=== PATIENT | male | born 1970 | race Caucasian/White ===

== ENCOUNTER 2024-11-24 09:59 | Outpatient (REF) | payer OTHER, SELFPAY ==
--- NOTE | ~2024-11-24 | XR_ITS ---
CLINICAL HISTORY: TARSAL TUNNEL SYNDROME OF RIGHT SIDE --- Additional Notes or Special Instructions: WO 3 view right foot Comparison: None provided Findings: Bones intact. No dislocations. No significant arthritic change or erosions. No ankle effusion. No radiopaque foreign body. IMPRESSION: 1. No acute findings. This document has been electronically signed by: Serjio Clarke MD on 11/25/2024 10:50:42
--- OUTSIDE RECORDS SUMMARY | 2024-11-24 11:15 | XMS_ITS | Data Portability ---
Author Organization [place] - [facility], Allergy Address [address] [address] Care Team Providers Care Pipe And Test Supervisor Name Role Phone JOHN DONG Primary Care Provider [phone] Assessment Encounter Date Assessment Date Assessment LastModified by Organization Details LastModified Time 01/05/2024 01/05/2024 53 year old male with a few months of left sided tinnitus that seems to have now resolved. Ear examination today is normal. Audiogram demonstrates normal hearing bilaterally. Audiogram was reviewed with the patient.We discussed that unilateral tinnitus is more unusual, but I am reassured by his normal exam, audiogram and almost complete resolution of symptoms. If the tinnitus were to return and be persistent, I would recommend reevaluation in our office with consideration of an MRI of the brain and internal auditory canals to rule out retrocochlear pathology. [email or web address] Not available 01/05/2024 14:32:09 Plan of Treatment Reminders Order Date Submit Date Provider Last Modified By Organization Details Last Modified Time Details Appointments None record ed. Lab None record ed. Referral None record ed. Procedures None record ed. Surgeries None record ed. Imaging None record ed. Medication Orders None record ed. Patient TargetsNo targets recorded. Patient InstructionsNo instructions recorded. Reason for Referral None Reported. Results Created Date Observation Date Name Description Value Unit Range Abnormal Flag Note LastModifiedBy Organization Detail LastModifiedTime 01/06/20 24 audio gram No observ ation record ed. BARCODE Not Available 2023 11:03:08 Result Notes None recorded. Problems Name Problem SNOMED Code Status Onset Date Resolution Date Notes Provider Name and Address Organization Details Recorded Time Tinnitus of left ear 5044054899629 Active 2023 ASHTYN BENTLEY, Alisha [address], [address], [facility] - [facility] 14:00:10 Problem Notes None recorded. Procedures Surgical History Date Name Laterality Status Provider Name and Address Organization Details Recorded Time 01/05/2024 Air & Speech Audio with Tymps - 00118, 47049 & 40866 completed ASHTYN BENTLEY, AuD 100 [facility],[address], [place], [address], [facility] 01/05/2024 13:58:24 Imaging Results None recorded. Procedure Notes None recorded. Medical Equipment None Reported. Allergies No known drug allergies Medications Name Sig Start Date Stop Date Status Note LastModified by Organization Details LastModified Time atorvastatin 20 mg tablet TAKE 1 TABLET BY MOUTH EVERY DAY active Not Available Not Available No t Available Vitals Date Recorded Body height Body mass index (BMI) Body weight Provider Name and Address Organization Details Last Updated DateTime 01/05/2024 182.88 cm 26.4 kg/m2 33347.51 g Kajal Quijano [facility] 01/05/2024 14:05:30 Social History None recorded. Functional Status None recorded. Mental Status None recorded. Family History Nothing Reported. Medical History No medical history recorded. Past Encounters Encounter ID Performer Location Encounter Start Date Encounter Closed Date Diagnosis/Indication Diagnosis SNOMED-CT Code Diagnosis ICD10 Code Diagnosis Note [id number] ROCHELLE BATISTA PA-C [facility] on [address] [place] [address] 01/05/2024 13:29:54 01/05/2024 15:35:12 Tinnitus of left ear 1211565470 106 H93.12 Audiologic al evaluation results: Right ear: Normal hearing with excellent word recognitio n. Left ear: Normal hearing with excellent word recognitio n. Tympanomet ry: Right Ear:Type A Left Ear:Type A Health Concerns Section Related Observation LastModified by Organization Detai ls LastModified Time None Recorded Concern Status LastModified by Organization Details LastModified Time None Recorded Advance Directives Directive None Recorded Payers Insurance Date Sequence Insurance Name Policy Number Policy Woods Covered Member ID Woods Member ID Guarantor Name 01/07/2024 1 [employer] - [employer] PPO (PPO) Maninder Hicks [id number] Maninder Hicks Notes Date Note Type Note Provider Name and Address Organization Details Recorded Time 01/05/2024 text/html 53 year old male presents today for evaluation of tinnitus.He reports about six to seven months ago he developed left sided tinnitus. It was fairly predominant and regular for a few months, and now seems mostly gone. He noted no hearing loss at the time. He feels he hears pretty well most of the time. He has some noise exposure through music. No occupational noise exposure, no firearm. No significant balance issues. Reports all his older male relatives have had hearing loss later in life. Rochelle wing [place] - [facility] 01/05/2024 14:32:21
== END 2024-11-24 10:00 | disposition home or self-care (01) ==
LOC: HO.XRAY 09:59
PROVIDERS: PCP Internal Medicine; Visit Provider Psychiatry & Neurology Neurology
DX: G57.51 Tarsal tunnel syndrome, right lower limb (principal)
CPT/HCPCS: 73620

== ENCOUNTER → 2024-11-24 10:06 | Outpatient (BNV) | payer OTHER, SELFPAY | PROVIDERS: PCP Internal Medicine; Visit Provider Radiology Diagnostic Radiology | DX: G57.51 Tarsal tunnel syndrome, right lower limb (principal) | CPT/HCPCS: 73620 ==

== ENCOUNTER 2024-12-21 08:27 | Outpatient (REF) | payer OTHER, SELFPAY ==
--- NOTE | 2024-12-21 | EMG_ITS ---
Impression: Normal motor and sensory nerve conduction velocities in the lower extremities. Normal EMG of the right L2-S1 innervated muscles. Please see detailed neurophysiological report MTDD
--- OUTSIDE RECORDS SUMMARY | 2024-12-21 08:31 | XMS_ITS | Data Portability ---
Author Organization [place] - [facility], Allergy Address [address] [address] Care Team Providers Care Ticker Wirer Name Role Phone JOHN DONG Primary Care Provider Assessment Encounter Date Assessment Date Assessment LastModified [...] Details Recorded Time Tinnitus of left ear 9328534655873 Active 2023 ASHTYN BENTLEY, AuD 100 [facility] [address], [place], [address], [facility] - [facility] 14:00:10 Problem Notes None recorded. Procedures Surgical History Date Name Laterality Status Provider Name and Address Organization Details Recorded Time 01/05/2024 Air & Speech Audio with Tymps - 17425, 14486 & 91238 completed ASHTYN SHEREE, AuD 100 [facility] [address], [place], [address], [facility] 01/05/2024 13:58:24 Imaging Results None recorded. Procedure [...] Updated DateTime 01/05/2024 182.88 cm 26.4 kg/m2 50072.51 g Kajal Quijano [facility] 01/05/2024 14:05:30 Social History None recorded. Functional Status None recorded. Mental Status None recorded. Family History Nothing Reported. Medical History No medical history recorded. Past Encounters Encounter ID Performer Location Encounter Start Date Encounter Closed Date Diagnosis/Indication Diagnosis SNOMED-CT Code Diagnosis ICD10 Code Diagnosis Note [id number] ROCHELLE BATISTA PA-C [facility] on [address] [place] [address] 01/05/2024 13:29:54 01/05/2024 15:35:12 Tinnitus of left ear [id number] 106 H93.12 Audiologic al evaluation results: Right [...] Woods Member ID Guarantor Name 01/07/2024 1 [employer] - [facility] PPO (PPO) Maninder Hicks [id number] Maninder Hicks Notes Date Note Type Note [...] wing [place] - [facility] 01/05/2024 14:32:21
== END 2024-12-21 08:28 | disposition home or self-care (01) ==
LOC: HO.NEURO 08:27
PROVIDERS: PCP Internal Medicine; Visit Provider Psychiatry & Neurology Neurology
DX: G57.51 Tarsal tunnel syndrome, right lower limb (principal)
CPT/HCPCS: 95885; 95910

== ENCOUNTER → 2024-12-21 08:30 | Outpatient (BNV) | payer OTHER, SELFPAY | PROVIDERS: PCP Internal Medicine; Visit Provider Psychiatry & Neurology Neurology | DX: G57.51 Tarsal tunnel syndrome, right lower limb (principal) | CPT/HCPCS: 95886; 95910 ==

== ENCOUNTER 2025-01-25 08:29 | Outpatient (AMB) | payer OTHER, SELFPAY ==
--- NOTE | 2025-01-25 08:38 | A.OFFVIS_ITS ---
Intake Visit Reasons: RT Foot paresthesia Allergies No Known Allergies Allergy (Verified 01/18/25 07:33) HPI Comments Details: This a generally healthy 54-year-old man with a history of mild hyperlipidemia who has a two-month history of a sensation of a bunched up sock under the right forefoot.? Her symptoms get worse if he has been running.? Occasionally, he gets slight swelling in the right foot.? It does not interfere with his sleep.? He has been a runner for a long time but has cut back on his running.? He has no complaints on the left side.? The symptoms are intermittent.? There is no electrical sensation or shock-like pain in the foot. A bit better , but still feels s bit of a ball' and numb spot in the 1st interspace head of metatarsal. [facility] Medical History (Updated 01/25/25 @ 08:40 by Phylicia Alexander MD) Tarsal tunnel syndrome of right side Review of Systems Const Details: ?Sleep:? Difficulty getting to sleepdenies.? Difficulty maintaining sleepdenies?.? Urge to move legsdenies.? Teeth grindingdenies.? Shouting or Kicking during sleep denies.? Abnormal behavior during sleepdenies.? Excessive sleepdenies.? Snoring denies.? Daytime sleepinessdenies. ???General/Constitutional:? Change in appetitedenies.? Chillsdenies.? Fatiguedenies.? Feverdenies.? Weight gaindenies.? Weight lossdenies. ???Ophthalmologic:? Blurred visiondenies.? Diminished visual acuitydenies. ???ENT:? Stuffinessdenies.? Decreased hearingdenies.? Dry mouthdenies.? Ear paindenies.? Nosebleeddenies.? Ringing in the earsadmits.? Sinus paindenies.? Sore throat denies.? Swollen glandsdenies. ???Endocrine:? Cold intolerancedenies.? Excessive thirstdenies.? Frequent urinationdenies.? Heat intolerancedenies. ???Respiratory:? Shortness of breathdenies.? Chest paindenies.? Coughdenies. ???Breast:? Breast lumpdenies.? Nipple dischargedenies. ???Cardiovascular:? Chest pain at restdenies.? Chest pain with exertiondenies.? Claudicationdenies .? Dizzinessdenies.? Fluid accumulation in the legsdenies.? Irregular heartbeat denies.? Palpitationsdenies. ???Gastrointestinal:? Abdominal paindenies.? Constipationdenies.? Diarrheadenies.? Difficulty swallowingdenies.? Heartburndenies.? Nauseadenies.? Rectal bleedingdenies. ???Hematology:? Easy bruisingdenies.? Prolonged bleedingdenies. ???Genitourinary:? Frequent urinationdenies.? Urgencydenies.? Incontinencedenies.? Erectile Dysfunctiondenies. ???Musculoskeletal:? Neck paindenies.? Back paindenies.? Muscle achesdenies.? Painful jointsdenies.? Sciaticadenies.? Weaknessdenies. ???Podiatric:? Difficulty walkingdenies.? Foot numbnessdenies. ???Neurologic:? Difficulty swallowingdenies.? Balance difficultydenies.? Coordinationnormal.? Difficulty speakingdenies.? Dizzinessdenies.? Faintingdenies.? Gait abnormality denies.? Headachedenies.? Loss of strengthdenies.? Loss of use of extremity denies.? Low back paindenies.? Memory lossdenies.? Seizuresdenies.? Ticsdenies.? Tingling/NumbnessRight foot.? Transient loss of visiondenies.? Tremordenies. ???Psychiatric:? Anxietydenies.? Auditory/visual hallucinationsdenies.? Delusionsdenies.? Depressed mooddenies.? Stressorsdenies.? Substance abusedenies.? Suicidal thoughtsdenies. Results Reviewed Results Reviewed: X ray foot normal 12/21/24 NCV/EMG: Normal motor and sensory nerve conduction velocities in the lower extremities. Normal EMG of the right L2-S1 innervated muscles. Assessment & Plan Assessment & Plan (1) Tarsal tunnel syndrome of right side: Code(s): G57.51 - Tarsal tunnel syndrome, right lower limb Category: Medical Plan Observation for now. If Sx get worse, see a form stripper Coding Level of Care Code Est Pt Level 3 (97071) Diagnoses Tarsal tunnel syndrome of right side G57.51
--- OUTSIDE RECORDS SUMMARY | 2025-01-25 09:08 | XMS_ITS | Encounter Summary ---
Author Organization [facility] Address [address] [facility] [address] [place] [address] Phone Care Team Providers Care Ice Plant Operator Name Role Phone Pedro Graff MD Unavailable [phone] Pedro Graff MD Primary Care Provider [phone] Encounter Details Date Type Department Care Team (Late st Contact Info) Description 04/22/2021 Procedure Pass OR Admitting Dept - Virtual Department [address] [place] [address] Social History Tobacco Use Types Packs/Day Years Used Date Smoking Tobacco: Never Smokeless Tobacco: Never Alcohol Use Standard Drinks/Week Comments Never 0 (1 standard drink = 0.6 oz pur e alcohol) Sex and Gender Information Value Date Recorded Sex Assigned at Male 09/29/2017 5:36 PM EDT Legal Sex Male 9:37 PM EDT Gender Identity Male 09/29/2017 5:36 PM EDT Sexual Orientation Not on file documented as of this encounter Plan of Treatment Not on file documented as of this encounter Visit Diagnoses Not on filedocumented in this encounter Care Teams Ice Plant Operator Relationship Specialty Start Date End Date Pedro Graff MD [address] [place] [address] PCP - General Internal Medicine 12/30/20 Pedro Graff MD [address] [place] [address] [email or web address] Insurance Assigned Provider 03/17/20 02/14/23 documented as of this encounter Additional Source Comments The information contained in this document represents components of the legal health record. It is not the complete legal health record.[facility]
== END 2025-01-25 10:29 | disposition home or self-care (01) ==
LOC: HO.HSM 08:29
PROVIDERS: PCP Internal Medicine; Referring Provider Internal Medicine; Visit Provider Psychiatry & Neurology Neurology
DX: G57.51 Tarsal tunnel syndrome, right lower limb (principal)
CPT/HCPCS: 99213